=== PATIENT | male | born 1960 | race Caucasian/White ===

== ENCOUNTER 2023-01-18 10:32 | Outpatient (CLI) | payer BC ==
[2023-01-18] MEDS ORDERED: LIDOCAINE FS SCH (12:15)
[2023-01-18] MEDS ORDERED: BUPIVACAINE FS SCH (12:15)
[2023-01-18] MEDS ORDERED: [UNRECOGNIZED DRUG - OTHER] FS SCH (12:15)
[2023-01-18] MEDS ORDERED: METHYLPREDNISOLONE ACETATE FS SCH (12:15)
== END 2023-01-18 10:33 | disposition home or self-care (01) ==
LOC: RAD 10:32
PROVIDERS: ATTEND Orthopaedic Surgery
DX: M16.11 Unilateral primary osteoarthritis, right hip (principal)
CPT/HCPCS: 20610; 77002; J1030; S0020

== ENCOUNTER 2024-05-09 10:51 | Outpatient (CLI) | payer SELFPAY | END 2024-05-09 10:52 | disposition home or self-care (01) | LOC: BICRAD 10:51 | PROVIDERS: ATTEND Urology | DX: C61 Malignant neoplasm of prostate (principal) | CPT/HCPCS: 76140 ==

== ENCOUNTER 2024-05-16 06:46 | Day surgery (SDC) | payer MEDICARE, OTHER ==
[2024-05-02 13:08] VITALS: BMI 37.5
[2024-05-16] MEDS ORDERED: Sodium Chloride 0.9% 100 ML ONE (08:15)
[2024-05-16] MEDS ORDERED: cefTRIAXone (ROCEPHIN) 2 GM VIAL ONE (08:15)
[2024-05-16] MEDS ORDERED: Famotidine/PF 20 mg/2ml Vial ONE (08:36)
[2024-05-16] MEDS ORDERED: PROPOFOL 20 ML ONE ×2 (08:39→08:40)
[2024-05-16] MEDS ORDERED: Lidocaine 2% PF 5 ML VIAL ONE (08:40)
[2024-05-16] MEDS ORDERED: Ondansetron PF 4 MG/2 ML Vial ONE (08:40)
[2024-05-16] MEDS ORDERED: Ketorolac Tromethamine 30 MG (1 mL) VIAL ONE (08:40)
[2024-05-16] MEDS ORDERED: fentaNYL 50 mcg/mL 1 mL Vial ONE (08:40)
== END 2024-05-16 10:27 | disposition home or self-care (01) ==
LOC: SDC 06:46
PROVIDERS: ATTEND Urology
PROC: 0VB03ZX Excision of Prostate, Percutaneous Approach, Diagnostic (ICD-10-PCS; principal; 2024-05-16)
DX: C61 Malignant neoplasm of prostate (principal); N40.0 Benign prostatic hyperplasia without lower urinary tract symptoms; R97.20 Elevated prostate specific antigen [PSA]; E78.5 Hyperlipidemia, unspecified; I10 Essential (primary) hypertension; E66.9 Obesity, unspecified; Z68.38 Body mass index [BMI] 38.0-38.9, adult; Z86.711 Personal history of pulmonary embolism; Z79.899 Other long term (current) drug therapy; Z96.652 Presence of left artificial knee joint; Z88.8 Allergy status to other drugs, medicaments and biological substances
CPT/HCPCS: 55700; J0696; J1885; J2001; J2405; J2704; J3010; J3490; S0028; 88341; 88342; G0416

== ENCOUNTER 2024-07-14 07:30 | Day surgery (SDC) | payer MEDICARE, OTHER ==
[2024-07-14] MEDS ORDERED: Sodium Bicarbonate 2.5 MEQ/5 ML SDV ONE (08:15)
[2024-07-14] MEDS ORDERED: Sodium Chloride 0.9% 500 ML ONE (08:16)
[2024-07-14] MEDS ORDERED: Iopamidol 0 ML ONE (08:16)
[2024-07-14 08:20] LABS: INR-International Normal Ratio 0.9; PTT 29.6 sec (22.9-36.1); Prothrombin Time 12.4 sec (12.0-14.7)
[2024-07-14] MEDS ORDERED: Iopamidol 30 ML ONE (08:28)
== END 2024-07-14 10:00 | disposition home or self-care (01) ==
LOC: SPEC 07:30
PROVIDERS: ATTEND Urology
PROC: 0T9B30Z Drainage of Bladder with Drainage Device, Percutaneous Approach (ICD-10-PCS; principal; 2024-07-14)
DX: C61 Malignant neoplasm of prostate (principal); N13.30 Unspecified hydronephrosis; N40.0 Benign prostatic hyperplasia without lower urinary tract symptoms; M86.251 Subacute osteomyelitis, right femur; N32.81 Overactive bladder; E78.5 Hyperlipidemia, unspecified; E66.9 Obesity, unspecified; I10 Essential (primary) hypertension; G47.30 Sleep apnea, unspecified; R97.20 Elevated prostate specific antigen [PSA]; Z86.711 Personal history of pulmonary embolism; Z98.890 Other specified postprocedural states; Z96.652 Presence of left artificial knee joint; Z88.8 Allergy status to other drugs, medicaments and biological substances
CPT/HCPCS: 50432; 76705; 85610; 85730; J7030; Q9967